=== PATIENT | female | born 1995 | race Caucasian/White ===

== ENCOUNTER 2018-01-14 16:09 | Emergency (ER) | payer OTHER ==
[2018-01-14 16:13] VITALS: BP 136/85; PULSE 76; TEMP 98.4; BMI 24.9
--- NOTE | 2018-01-14 16:15 | PDOC ---
Rapid Medical Evaluation Chief Complaint: Edema Time Seen by Provider: 01/14/18 16:12 Medical Evaluation: 01/14/18 16:12 I have performed a brief in-person evaluation of this patient. The patient presents with a chief complaint of: woke up with "pimple" to right face, put cream on it and it got worse, +change in vision x 2 days "sometimes blurry vision". 320 LMP Pertinent physical exam findings: erythema and tenderness inferior to R eye I have ordered the following: urine preg The patient will proceed to the ED for further evaluation. Discharge Disposition - Diagnosis Cellulitis - Referrals - Patient Instructions - Post Discharge Activity
--- NOTE | 2018-01-14 16:48 | PDOC ---
History of Present Illness - General Chief Complaint: Edema Stated Complaint: RASH Time Seen by Provider: 01/14/18 16:12 History Source: Patient Exam Limitations: No Limitations (swelling and erythema in R infraorbital region ) Past History - Past Medical History Allergies/Adverse Reactions: Allergies Allergy/AdvReac Type Severity Reaction Status Date / Time No Known Allergies Allergy Verified 01/14/18 16:13 Home Medications: Ambulatory Orders Clindamycin [Cleocin -] 300 mg PO Q8H 5 Days #15 capsule 01/14/18 COPD: No - Suicide/Smoking/Psychosocial Hx Smoking History: Never smoked Information on smoking cessation initiated: No Hx Alcohol Use: No Drug/Substance Use Hx: No Substance Use Type: None *Physical Exam - Vital Signs Last Vital Signs Temp Pulse Resp BP Pulse Ox 98.4 F 76 18 136/85 98 01/14/18 16:11 01/14/18 16:11 01/14/18 16:11 01/14/18 16:11 01/14/18 16:11 - Physical Exam General Appearance: Yes: Nourished, Appropriately Dressed HEENT: positive: EOMI, JESUS MANUEL, Symmetrical, Other (R eye: + ann-marie size area of erythema with pimple in R infraorbital region, no pain on ocular movement). negative: Photophobia, Tonsillar Erythema, Nasal Congestion, Rhinorrhea Neck: positive: Supple Respiratory/Chest: positive: Lungs Clear, Normal Breath Sounds ED Treatment Course - ADDITIONAL ORDERS Additional order review: Laboratory Results 01/14/18 15:45 Urine HCG, Qual Negative Medical Decision Making - Medical Decision Making 22y/o F with swlling and erythema to under R infraorbital region after she manipulated a pimple a week ago PE consistent with preseptal cellulitis, visual acuity 20/25 w/o corrected b/l eye pen allergic, Rx for clinidamycin with opthalmology f/u 01/14/18 17:03 *DC/Admit/Observation/Transfer Diagnosis at time of Disposition: Cellulitis Qualifiers: Site of cellulitis: face Qualified Code(s): L03.211 - Cellulitis of face - Discharge Dispostion Disposition: HOME Condition at time of disposition: Stable Admit: No - Prescriptions Prescriptions: Clindamycin [Cleocin -] 300 mg PO Q8H 5 Days #15 capsule - Referrals Referrals: Og Beasley MD [Staff Physician] - 3 days - Patient Instructions Printed Discharge Instructions: Orbital Cellulitis Additional Instructions: RX as prescribed. Warm/cool packs to area may be soothing. Skin care instructions given and stressed importance of appropriate management. RTC or go to ER if any worsening or s/s of worsening infection ( i.e. fever and ocular pain etc) - Post Discharge Activity
== END 2018-01-14 17:04 | disposition home or self-care (01) ==
LOC: JERFT 16:09
DX: L03.211 Cellulitis of face (principal)
CPT/HCPCS: 84703; 99281-25